=== PATIENT | male | born 1975 | race Caucasian/White ===

== ENCOUNTER 2017-09-23 06:16 | Day surgery (SDC) | payer OTHER ==
[2017-09-23] MEDS ORDERED: FENTAnyl 50 MCG/ML VIAL (07:22)
[2017-09-23] MEDS ORDERED: MIDAZOLAM 1 MG/ML 2 ML INJ (07:22)
[2017-09-23] MEDS ORDERED: LIDOCAINE 1% (MDV) 20 ML INJ (07:22)
[2017-09-23] MEDS ORDERED: HEPARIN 1000 UNITS/ML 10 ML INJ (07:22)
[2017-09-23] MEDS ORDERED: IODIXANOL LOCM 100 ML BTL (07:22)
[2017-09-23] MEDS ORDERED: NITROGLYCERIN (IC) 100 MCG/ML INJ (07:23)
[2017-09-23] MEDS ORDERED: VERAPAMIL 5 MG INJ (07:23)
[2017-09-23 07:44] LABS: ADD MAN DIFF? NO
[2017-09-23 07:52] LABS: BASOPHILS % 0.6 % (0.0-2.0); EOSINOPHILS # 0.3 10^3/ul (0.0-0.5); EOSINOPHILS % 3.8 % (0.0-7.0); HEMATOCRIT 42.4 % (42.0-52.0); HEMOGLOBIN 13.5 g/dl (14.0-18.0); LYMPHOCYTES # 1.4 10^3/ul (0.8-2.9); LYMPHOCYTES % 19.7 % (15.0-51.0); MEAN CORPUSCULAR HEMOGLOBIN 28.5 pg (29.0-33.0); MEAN CORPUSCULAR HGB CONC 31.8 g/dl (32.0-37.0); MEAN CORPUSCULAR VOLUME 89.6 fl (82.0-101.0); MEAN PLATELET VOLUME 9.7 fl (7.4-10.4); MONOCYTE # 0.7 10^3/ul (0.3-0.9); MONOCYTES % 9.8 % (0.0-11.0); NEUTROPHIL # 4.7 10^3/ul (1.6-7.5); NEUTROPHILS % 65.7 % (39.0-77.0); PLATELET COUNT 276 10^3/UL (140-415); RED BLOOD COUNT 4.73 10^6/ul (4.70-6.10); RED CELL DISTRIBUTION WIDTH 15.4 % (11.5-14.5)
[2017-09-23 07:52] LABS: WHITE BLOOD COUNT 7.1 10^3/ul (4.8-10.8)
[2017-09-23 08:02] LABS: INR 1.04; PROTIME 13.7 Sec (11.9-14.9); PT RATIO 1.1
[2017-09-23 08:05] LABS: ANION GAP 14 (8-16); CARBON DIOXIDE 31 mmol/L (21-31); CHLORIDE 103 mmol/L (97-110); GLUCOSE 124 mg/dl (70-220)
[2017-09-23 08:07] LABS: BLOOD UREA NITROGEN 7 mg/dl (7-20); CREATININE 0.85 mg/dl (0.61-1.24); POTASSIUM 4.7 mmol/L (3.5-5.1); SODIUM 143 mmol/L (135-144)
[2017-09-23] MEDS ORDERED: SOD CHLORIDE 0.9% 1,000 ML IV (08:33)
== END 2017-09-23 11:30 | disposition home or self-care (01) ==
LOC: SDS 06:16
DX: I25.10 Atherosclerotic heart disease of native coronary artery without angina pectoris (principal); I42.9 Cardiomyopathy, unspecified
CPT/HCPCS: 80048; 82962; 85025; 85610; 93005; 93458